=== PATIENT | male | born 1940 | race Caucasian/White ===

== ENCOUNTER 2021-03-21 09:51 | Emergency (ER) | payer MEDICARE, BC ==
[~2021-03-21] VITALS: Ht 172.7 cm; Wt 62.7 kg
[~2021-03-21 09:51] MED LIST: AMAN100T PO; ASPI325T8 PO; CARB-183 PO; CARV6.2511 PO; MULT-246 PO; doxy; doxycycline
[2021-03-21 11:41] LABS: BASO % 1 % (0-3); EOS % 0 % (0-3); HEMATOCRIT 40.8 % (39.0-53.0); HEMOGLOBIN 13.8 g/dL (13.0-17.5); LYMPH # 0.3 x10^3/uL (1.0-4.8); LYMPH % 10 % (24-48); MEAN CORPUSCULAR HEMOGLOBIN 30 pg (25-35); MEAN CORPUSCULAR HGB CONC 34 g/dL (31-37); MEAN CORPUSCULAR VOLUME 90 fL (79-100); MONO # 0.5 x10^3/uL (0.0-1.1); MONO % 16 % (0-9); NEUT # 2.3 x10^3/uL (1.8-7.7); NEUT % 73 % (31-73); PLATELET COUNT 161 x10^3/uL (140-400); RED BLOOD COUNT 4.54 x10^6/uL (4.30-5.70); RED CELL DISTRIBUTION WIDTH 14.1 % (11.5-14.5); WHITE BLOOD COUNT 3.1 x10^3/uL (4.0-11.0)
[2021-03-21 11:58] LABS: CALCIUM 8.6 mg/dL (8.5-10.1); CREATININE 1.5 mg/dL (0.7-1.3); GFR 44.8; POTASSIUM 4.7 mmol/L (3.5-5.1)
[2021-03-21 12:04] LABS: ALBUMIN 3.7 g/dL (3.4-5.0); MAGNESIUM 2.2 mg/dL (1.8-2.4); TOTAL BILIRUBIN 0.3 mg/dL (0.2-1.0); TOTAL PROTEIN 7.3 g/dL (6.4-8.2)
--- NOTE | 2021-03-21 12:11 | RAD ---
Exam Date: 03/21/2021 11:[address] HEAD AND C-SPINE WO Indication: Reason: fall / Spl. Instructions: / History: . One or more of the following dose reduction techniques were utilized: *Automated exposure control (AEC) *Adjustment of mA and/or kV according to patient size *Use of iterative reconstruction technique *CT scan done according to ALARA, or ALARA/IMAGE GENTLY EXAMINATION: CT OF THE HEAD WITHOUT CONTRAST INDICATION: Trauma, head injury, headache; TECHNIQUE: Noncontrast helical axial CT images of the head were obtained. COMPARISON: October 09, 2014 FINDINGS: Cavum septum pellucidum and cavum vergae are noted. The ventricles and sulci are prominent consistent with cerebral volume loss. Patchy ill-defined low attenuation areas in the subcortical and periventricular white matter bilaterally are consistent with microvascular disease. There is no evidence of acute intracranial hemorrhage, extra-axial collecti on, mass effect, midline shift, or acute territorial infarct. No lesion of the skull base or the calv arium is seen. The visualized paranasal sinuses, mastoid air cells, and orbits are normal in appearan ce. IMPRESSION: No evidence for acute intracranial abnormality. Volume loss and microvascular disease. EXAMINATION: CT OF THE CERVICAL SPINE WITHOUT CONTRAST Clinical Indication: Cervical spine pain after trauma Technique: Thin cut helical axial CT images through the cervical spine were obtained without contrast on a multi-detector CT scanner. Source data was then reconstructed into sagittal and coronal planes. Findings: Alignment is maintained without spondylolisthesis. Vertebral body heights are maintained without acute fracture. Moderate to severe multilevel degenerat sanchez changes are noted. No significant prevertebral soft tissue swelling is demonstrated. No severe os seous central canal stenosis is seen. Impression: No evidence of acute cervical spine fracture or subluxation. Electronically signed by: Ryland Rivera MD (03/21/2021 12:08 PM) [id number]
--- NOTE | 2021-03-21 12:29 | PHYS DOC ---
Past Medical History Past Medical History: Hypertension, Other Additional Past Medical Histor: Parkinson's (TREVOR TIJERINA SEO ASSISTANT) Past Surgical History: No Surgical History Additional Past Surgical Histo: INGUINAL HERNIA (TREVOR TIJERINA SEO ASSISTANT) Smoking Status: Never Smoker Alcohol Use: None Drug Use: None (TREVOR TIJERINA SEO ASSISTANT) General Adult EDM: Chief Complaint: MECHANICAL FALL HPI: HPI: Patient is a 80 year old male with history of hypertension, Parkinson's, who presents to the ED today to be evaluated after falling last night. said patient has history of chronic falls due to Parkinson's disease. She states yesterday patient fell, it was unwitnessed fall. Patient is a poor historian. He is complaining of left elbow pain and right rib pain. Not able to really rate his pain or describe it. There is also some language barrier. He understands some Nam[place]ian but mostly speaks Syriac, family is interpreting. Family also states patient's son was diagnosed with COVID-19 at the beginning of this week unfortunately on the weekend patient had physical contact with the son. states patient has been increasingly weak. (TREVOR TIJERINA SEO ASSISTANT) Review of Systems: Review of Systems: Constitutional: Reports generalized weakness. Denies fever or chills. [] Eyes: Denies change in visual acuity. [] HENT: Denies nasal congestion or sore throat. [] Respiratory: Reports right rib pain denies cough or shortness of breath. [] Cardiovascular: Denies chest pain or edema. [] GI: Denies abdominal pain, nausea, vomiting, bloody stools or diarrhea. [] : Denies dysuria. [] Musculoskeletal: Reports left elbow pain denies back pain Integument: Denies rash. [] Neurologic: Denies headache, focal weakness or sensory changes. [] Psychiatric: Denies depression or anxiety. [] (TREVOR TIJERINA SEO ASSISTANT) Heart Score: C/O Chest Pain: N/A Risk Factors: Risk Factors: DM, Current or recent (<one month) smoker, HTN, HLP, family history of CAD, obesity. Risk Scores: Score 0 - 3: 2.5% MACE over next 6 weeks - Discharge Home Score 4 - 6: 20.3% MACE over next 6 weeks - Admit for Clinical Observation Score 7 - 10: 72.7% MACE over next 6 weeks - Early Invasive Strategies (TREVOR TIJERINA SEO ASSISTANT) Allergies: Allergies: Allergies Coded Allergies Type Severity Reaction Last Updated Verified No Known Drug Allergies 10/09/14 No (TREVOR TIJERINA SEO ASSISTANT) Physical Exam: PE: Constitutional: Well developed, well nourished, no acute distress, non-toxic appearance. [] HENT: Normocephalic, atraumatic, bilateral external ears normal, oropharynx moist, no oral exudates, nose normal. [] Eyes: PERRLA, EOMI, conjunctiva normal, no discharge. [] Neck: Normal range of motion, no tenderness, supple, no stridor. [] Cardiovascular:Heart rate regular rhythm, no murmur [] Lungs & Thorax: Bilateral breath sounds clear to auscultation [] Abdomen: Bowel sounds normal, soft, no tenderness, no masses, no pulsatile masses. [] Skin: Warm, dry, no erythema, no rash. [] Back: No tenderness, no CVA tenderness. [] Extremities: Bruising noted on the left elbow. No tenderness, no cyanosis, no clubbing, ROM intact, no edema. [] Neurologic: Alert and oriented X 3, normal motor function, normal sensory function, no focal deficits noted. Cranial nerves II through XII intact, parkinsonian tremor noted on the left upper extremity Psychologic: Affect normal, judgement normal, mood normal. [] (TREVOR TIJERINA SEO ASSISTANT) Current Patient Data: Labs: Laboratory Tests Test 03/21/21 11:30 White Blood Count 3.1 x10^3/uL (4.0-11.0) L Red Blood Count 4.54 x10^6/uL (4.30-5.70) Hemoglobin 13.8 g/dL (13.0-17.5) Hematocrit 40.8 % (39.0-53.0) Mean Corpuscular Volume 90 fL (79-100) Mean Corpuscular Hemoglobin 30 pg (25-35) Mean Corpuscular Hemoglobin Concent 34 g/dL (31-37) Red Cell Distribution Width 14.1 % (11.5-14.5) Platelet Count 161 x10^3/uL (140-400) Neutrophils (%) (Auto) 73 % (31-73) Lymphocytes (%) (Auto) 10 % (24-48) L Monocytes (%) (Auto) 16 % (0-9) H Eosinophils (%) (Auto) 0 % (0-3) Basophils (%) (Auto) 1 % (0-3) Neutrophils # (Auto) 2.3 x10^3/uL (1.8-7.7) Lymphocytes # (Auto) 0.3 x10^3/uL (1.0-4.8) L Monocytes # (Auto) 0.5 x10^3/uL (0.0-1.1) Eosinophils # (Auto) 0.0 x10^3/uL (0.0-0.7) Basophils # (Auto) 0.0 x10^3/uL (0.0-0.2) Platelet Estimate Pending Sodium Level 139 mmol/L (136-145) Potassium Level 4.7 mmol/L (3.5-5.1) Chloride Level 103 mmol/L (98-107) Carbon Dioxide Level 29 mmol/L (21-32) Anion Gap 7 (6-14) Blood Urea Nitrogen 24 mg/dL (8-26) Creatinine 1.5 mg/dL (0.7-1.3) H Estimated GFR (Cockcroft-Gault) 44.8 BUN/Creatinine Ratio 16 (6-20) Glucose Level 91 mg/dL (70-99) Calcium Level 8.6 mg/dL (8.5-10.1) Magnesium Level 2.2 mg/dL (1.8-2.4) Total Bilirubin 0.3 mg/dL (0.2-1.0) Aspartate Amino Transferase (AST) 19 U/L (15-37) Alanine Aminotransferase (ALT) 15 U/L (16-63) L Alkaline Phosphatase 61 U/L (46-116) Troponin I Quantitative < 0.017 ng/mL (0.000-0.055) Total Protein 7.3 g/dL (6.4-8.2) Albumin 3.7 g/dL (3.4-5.0) Albumin/Globulin Ratio 1.0 (1.0-1.7) Thyroid Stimulating Hormone (TSH) 2.579 uIU/mL (0.358-3.74) Laboratory Tests 03/21/21 11:30 Laboratory Tests 03/21/21 11:30 Vital Signs: Vital Signs Date Time Temp Pulse Resp B/P (MAP) Pulse Ox O2 Delivery O2 Flow Rate FiO2 03/21/21 10:00 98.2 85 18 158/85 96 Room Air 98.2 (TREVOR TIJERINA SEO ASSISTANT) EKG: EK Interpreted by Dr. Rios sinus rhythm HR 80 no STEMI (TREVOR TIJERINA SEO ASSISTANT) Radiology/Procedures: Radiology/Procedures: []PROCEDURE: CT HEAD AND CERVICAL SPINE WO Exam Date: 03/21/2021 11:[address] HEAD AND C-SPINE WO Indication: Reason: fall / Spl. Instructions: / History: . One or more of the following dose reduction techniques were utilized: *Automated exposure control (AEC) *Adjustment of mA and/or kV according to patient size *Use of iterative reconstruction technique *CT scan done according to ALARA, or ALARA/IMAGE GENTLY EXAMINATION: CT OF THE HEAD WITHOUT CONTRAST INDICATION: Trauma, head injury, headache; TECHNIQUE: Noncontrast helical axial CT images of the head were obtained. COMPARISON: October 09, 2014 FINDINGS: Cavum septum pellucidum and cavum vergae are noted. The ventricles and sulci are prominent consistent with cerebral volume loss. Patchy ill-defined low attenuation areas in the subcortical and periventricular white matter bilaterally are consistent with microvascular disease. There is no evidence of acute intracranial hemorrhage, extra-axial collection, mass effect, midline shift, or acute territorial infarct. No lesion of the skull base or the calvarium is seen. The visualized paranasal sinuses, mastoid air cells, and orbits are normal in appearance. IMPRESSION: No evidence for acute intracranial abnormality. Volume loss and microvascular disease. EXAMINATION: CT OF THE CERVICAL SPINE WITHOUT CONTRAST Clinical Indication: Cervical spine pain after trauma Technique: Thin cut helical axial CT images through the cervical spine were obtained without contrast on a multi-detector CT scanner. Source data was then reconstructed into sagittal and coronal planes. Findings: Alignment is maintained without spondylolisthesis. Vertebral body heights are maintained without acute fracture. Moderate to severe multilevel degenerative changes are noted. No significant prevertebral soft tissue swelling is demonstrated. No severe osseous central canal stenosis is seen. Impression: No evidence of acute cervical spine fracture or subluxation. Electronically signed by: Daryl Rivera MD (03/21/2021 12:08 PM) [id number] DICTATED and SIGNED BY: DARYL RIVERA MD DATE: 03/21/21 [id number] PROCEDURE: ELBOW LEFT 3V EXAM: LEFT ELBOW 3 VIEWS. HISTORY: Fall, pain. COMPARISON: None. FINDINGS: The lateral view is rotated, limiting sensitivity for fracture or joint effusion. At least a small joint effusion is suspected. There is moderate to severe tricompartmental osteoarthritis. A loose body within the olecranon fossa measures 8 mm. An ossicle along the lateral humeral epicondyle may reflect a chronic lateral collateral ligament injury or chronic epicondylitis. IMPRESSION: 1. No fracture. A joint effusion is suspected. 2. Moderate to severe tricompartmental osteoarthritis. Electronically signed by: Mel Tapia MD (03/21/2021 12:41 PM) [id number] DICTATED and SIGNED BY: NEEL TAPIA MD DATE: 03/21/21 [id number] PROCEDURE: PORTABLE CHEST 1V EXAM: CHEST ONE VIEW. HISTORY: Fall, rib pain. COMPARISON: 10/09/2014. FINDINGS: A frontal view of the chest is obtained. There are no confluent infiltrates. There is no pneumothorax or pleural effusion. The heart is not enlarged. There are chronic left rib fractures. IMPRESSION: 1. No confluent infiltrates. Electronically signed by: Mel Tapia MD (03/21/2021 12:42 PM) [id number] DICTATED and SIGNED BY: NEEL TAPIA MD DATE: 03/21/21 [id number] (TREVOR TIJERINA APRN) Course & Med Decision Making: Course & Med Decision Making Pertinent Labs and Imaging studies reviewed. (See chart for details) This is a 80-year-old male patient presenting to the ED today to be evaluated after falling last night. History of Parkinson's. Also complaining of being in contact with the son that had positive Covid test recently EKG is negative, CT of the head, cervical spine, left elbow x-ray and chest x- rays are negative for any acute findings, CBC with a WBC of 3.9, CMP with creatinine of 1.5, BUN is normal. Patient will be given IV fluids in the ED. D/c to home after IV fluids. Will be called with COVID results, instructed to quarantine self until then. Follow-up with PCP Positive for Covid. Results given to patient and family. O2 sats are 96% on room air patient is afebrile (TREVOR TIJERINA APRN) Dragon Disclaimer: Dragon Disclaimer: This electronic medical record was generated, in whole or in part, using a voice recognition dictation system. (TREVOR TIJERINA APRN) Departure Departure Impression: Primary Impression: Fall Qualified Codes: W19.XXXA - Unspecified fall, initial encounter Additional Impressions: Left elbow contusion Qualified Codes: S50.02XA - Contusion of left elbow, initial encounter Dehydration Acute kidney injury Person under investigation for COVID-19 Lab test positive for detection of COVID-19 virus Disposition: 01 HOME / SELF CARE / HOMELESS Condition: STABLE Referrals: KRAEN TORRES MD (PCP) Follow-up in 1 week Patient Instructions: Contusion, [id number], Dehydration, Adult, Fall Prevention and Home Safety Additional Instructions: You were evaluated in the emergency room, your CAT scan of the head, neck, are negative for any acute findings, your x-rays of the chest including the ribs and left elbow are negative for any acute findings. You were noted to be dehydrated, you were given some IV fluids in the ED. We encourage you to continue hydrating yourself at home. You will be tested for COVID-19 before you go home. We will call you when results are available. Quarantine yourself until then. Maintain good hand hygiene. Attending Signature Attending Signature I have reviewed the PA/ANESTHETIST's note and plan of care. I was available for consultation as needed during the patient's visit in the emergency department. I agree with the clinical impression, plan, and disposition. (BJ RIOS DO) TREVOR TIEJRINA APRN Mar 21, 2021 12:29 BJ RIOS DO Mar 22, 2021 14:16
--- NOTE | 2021-03-21 12:44 | RAD ---
EXAM: LEFT ELBOW 3 VIEWS. HISTORY: Fall, pain. COMPARISON: None. FINDINGS: The lateral view is rotated, limiting sensitivity for fracture or joint effusion. At least a small joint effusion is suspected. There is moderate to severe tricompartmental osteoarthritis. A l oose body within the olecranon fossa measures 8 mm. An ossicle along the lateral humeral epicondyle m ay reflect a chronic lateral collateral ligament injury or chronic epicondylitis. IMPRESSION: 1. No fracture. A joint effusion is suspected. 2. Moderate to severe tricompartmental osteoarthritis. Electronically signed by: Mel Tapia MD (03/21/2021 12:41 PM) [id number]
--- NOTE | 2021-03-21 12:45 | RAD ---
EXAM: CHEST ONE VIEW. HISTORY: Fall, rib pain. COMPARISON: 10/09/2014. FINDINGS: A frontal view of the chest is obtained. There are no confluent infiltrates. There is no pneumothorax or pleural effusion. The heart is not en larged. There are chronic left rib fractures. IMPRESSION: 1. No confluent infiltrates. Electronically signed by: Mel Tapia MD (03/21/2021 12:42 PM) [id number]
--- NOTE | 2021-03-21 12:50 | EKG ---
[facility] [address] [place] [address] Test Date: 2021-03-21 Test Time: 12:47:50 Pat Name: ERAN OCONNOR Department: Room: Gender: M [employer]: : 1940 Requested By: TREVOR TIJERINA Order Number: [id number] Reading MD: Measurements Intervals [place] Rate: 80 P: 17 IN: 190 QRS: 27 QRSD: 100 T: 54 QT: 368 QTc: 428 Interpretive Statements SINUS RHYTHM NORMAL ECG RI6.02 No previous ECG available for comparison
[2021-03-21 12:56] LABS: BILIRUBIN,URINE NEGATIVE (NEG); CLARITY,URINE CLEAR; COLOR,URINE YELLOW; NITRITE,URINE NEGATIVE (NEG); PROTEIN,URINE NEGATIVE (NEG-TRACE); UROBILINOGEN,URINE 0.2 mg/dL (0.2 mg/dL)
[2021-03-21] MEDS ORDERED: IV NORMAL SALINE 1000ML BAG 1,000 ML IV ONE (13:15)
[2021-03-21 13:20] LABS: % BANDS 6 % (0-9); % EOS 1 % (0-5); % LYMPHS 17 % (24-48); % MONOS 15 % (0-10); % SEGS 61 % (35-66); PLT ESTIMATE ADEQUATE (ADEQUATE)
[2021-03-21 13:42] LABS: BACTERIA,URINE 0 /HPF (0-FEW); RBC,URINE >40 /HPF (0-2); WBC,URINE 0 /HPF (0-4)
[2021-03-21 16:00] VITALS: BP 109/77
== END 2021-03-21 16:15 | disposition home or self-care (01) ==
LOC: ER 09:51
DX: S50.02XA Contusion of left elbow, initial encounter (principal); N17.9 Acute kidney failure, unspecified; E86.0 Dehydration; G20 Parkinson's disease; I10 Essential (primary) hypertension; Z20.822 Contact with and (suspected) exposure to COVID-19; W18.39XA Other fall on same level, initial encounter; Y93.89 Activity, other specified; Y92.89 Other specified places as the place of occurrence of the external cause; Y99.8 Other external cause status
CPT/HCPCS: 36415; 70450; 71045; 72125; 73080; 80053; 81001; 83735; 83880; 84443; 84484; 85007; 85025; 87426; 93005; 96360; 99285; J7030; U0003; U0005